=== PATIENT | male | born 1955 | race Caucasian/White ===

== ENCOUNTER 2022-06-10 05:59 | Emergency (ER) | payer MEDICARE, OTHER ==
[2022-06-10 06:35] LABS: BASOPHILS # (AUTO) 0.1 10^3/uL (0.0-0.1); BASOPHILS % (AUTO) 0.8 %; EOSINOPHILS # (AUTO) 0.1 10^3/uL (0.0-0.7); EOSINOPHILS % (AUTO) 1.7 %; HCT - HEMATOCRIT 42.1 % (42.0-52.0); HGB - HEMOGLOBIN 14.2 g/dL (14.0-18.0); LYMPHOCYTES # (AUTO) 1.3 10^3/uL (1.5-3.5); LYMPHOCYTES % (AUTO) 19.1 %; MEAN CORPUSCULAR HEMOGLOBIN 30.3 pg (27.0-31.0); MEAN CORPUSCULAR HGB CONC 33.7 g/dL (32.0-36.0); MEAN CORPUSCULAR VOLUME 89.8 fL (80.0-94.0); MEAN PLATELET VOLUME 9.1 fL (7.4-11.4); MONOCYTES # (AUTO) 0.6 10^3/uL (0.0-1.0); MONOCYTES % (AUTO) 8.7 %; NEUTROPHILS # (AUTO) 4.6 10^3/uL (1.5-6.6); NEUTROPHILS % (AUTO) 69.2 %; PLT - PLATELET COUNT 268 10^3/uL (130-450); RED BLOOD COUNT 4.69 10^6/uL (4.70-6.10); RED CELL DISTRIBUTION WIDTH 11.9 % (12.0-15.0); WHITE BLOOD COUNT 6.7 x10^3/uL (4.8-10.8)
--- NOTE | 2022-06-10 06:38 | ED Physician Documentation ---
History of Present Illness - Stated complaint Stated Complaint: CHEST PX - Chief complaint Chief Complaint: Cardiac - Additonal information Additional information: Patient 67-year-old male presenting to the emergency department with chief com plaint chest pain. Reports substernal chest pain radiating down the left arm that began at 01 100 this morning. Denies previous episodes of chest pain. Reports a history of high blood pressure and does state that he believes he may have slightly elevated cholesterol. Is an ex-smoker who quit in 1974. Reports some recent travel, 3 months ago flew to [place]. Review of Systems Constitutional: denies: Fever Eyes: denies: Loss of vision Ears: denies: Loss of hearing Nose: denies: Rhinorrhea / runny nose Throat: denies: Dental pain / toothache Cardiac: reports: Chest pain / pressure Respiratory: denies: Dyspnea GI: denies: Abdominal Pain, Nausea, Vomiting PD PAST MEDICAL HISTORY - Past Medical History Cardiovascular: Hypertension Endocrine/Autoimmune: HyPOthyroidism - Present Medications Home Medications: Ambulatory Orders Medication Instructions Recorded Confirmed Albuterol [Ventolin Hfa] 06/11/14 06/11/14 Azithromycin [Zithromax] 250 mg PO DAILY #4 tablet 06/11/14 Benzonatate [Tessalon] 06/11/14 06/11/14 Carvedilol [Coreg] 25 mg PO BID 06/11/14 06/11/14 Levothyroxine Sodium [Synthroid] 225 mcg PO DAILY 06/11/14 06/11/14 Telmisartan [Micardis] 80 mg PO DAILY 06/11/14 06/11/14 guaiFENesin/CODEINE [Robitussin AC] 5 - 10 ml PO Q6H PRN #120 ml 06/11/14 predniSONE [Deltasone] 40 mg PO DAILY 3 Days tablet 06/11/14 - Allergies Allergies/Adverse Reactions: Allergies Allergy/AdvReac Type Severity Reaction Status Date / Time No Known Drug Allergies Allergy Verified 06/10/22 06:15 - Social History Does the pt smoke?: No Smoking Status: Never smoker Does the pt drink ETOH?: No Does the pt have substance abuse?: No - Immunizations Immunizations: TDAP >10years/unknown PD ED PE NORMAL - Vitals Vital signs reviewed: Yes (Hypertensive but otherwise within normal limits.) - General General: Alert and oriented X 3, No acute distress, Well developed/nourished - HEENT HEENT: Atraumatic, PERRL, EOMI, Ears normal, Pharynx benign - Neck Neck: Supple, no meningeal sign, No bony TTP, No adenopathy, No JVD - Cardiac Cardiac: RRR, No murmur, No gallop, No rub - Respiratory Respiratory: No respiratory distress - Abdomen Abdomen: Normal bowel sounds - Male Male : Deferred - Rectal Rectal: Deferred - Derm Derm: Normal color - Extremities Extremities: No deformity - Neuro Neuro: Alert and oriented X 3, piano regulator 2-12 intact, No motor deficit, No sensory deficit, Normal speech Results - Vitals Vitals: Vital Signs - 24 hr 06/10/22 06/10/22 06/10/22 06:04 06:50 07:28 Temperature 35.7 C L Heart Rate 63 60 61 Respiratory 20 16 20 Rate Blood Pressure 208/94 H 184/98 H 173/100 H O2 Saturation 99 100 100 Oxygen O2 Source Room air - EKG (time done) 0609 EKG releavant findings:: EKG personally interpreted by author of this note. Relevant findings are: Sinus rhythm with rate 66 bpm. Left axis deviation. MD interval prolonged at 211 ms. Normal QRS and QTc intervals. No ST segment elevations. Nonspecific ST-T wave abnormalities noted most prominently in the inferior leads. No previous available for comparison. - Labs Labs: Laboratory Tests 06/10/22 06/10/22 06/10/22 06:22 06:22 06:22 WBC 6.7 RBC 4.69 L Hgb 14.2 Hct 42.1 MCV 89.8 MCH 30.3 MCHC 33.7 RDW 11.9 L Plt Count 268 MPV 9.1 Neut # (Auto) 4.6 Lymph # (Auto) 1.3 L Garrard # (Auto) 0.6 Eos # (Auto) 0.1 Baso # (Auto) 0.1 Absolute Nucleated RBC 0.00 Nucleated RBC % 0.0 Sodium 137 Potassium 4.4 Chloride 104 Carbon Dioxide 26 Anion Gap 7.0 BUN 25 H Creatinine 1.0 Estimated GFR (MDRD) 75 L Glucose 130 H Calcium 9.2 Total Bilirubin 0.9 AST 30 ALT 27 Alkaline Phosphatase 73 Troponin I High Sens 49.3 H* Total Protein 7.8 Albumin 3.9 Globulin 3.9 Albumin/Globulin Ratio 1.0 Lipase 38 PD Medical Decision Making - ED course Complexity details: reviewed results, d/w patient ED course: Patient 67-year-old male presenting to the emergency departmentWith chest pain. Patient awoke 0100 hours with substernal chest pain radiating to theLeft arm. EKG demonstrates T wave inversions notably in the inferior leads with no previous EKG available for comparison. Ordered initial labs including initial high-sensitivity troponin and D-dimer. Patient otherwise hemodynamically stable. Signed out to the oncoming physician, please see their documentation for further detail. Departure - Departure Disposition: 02 Transfer Acute Care Hosp Clinical Impression: Non-ST elevation NE (NSTEMI) Condition: Serious
[2022-06-10 06:56] LABS: ALBUMIN 3.9 g/dL (3.2-5.5); BILIRUBIN,TOTAL 0.9 mg/dL (0.2-1.0); CALCIUM 9.2 mg/dL (8.5-10.3); TOTAL PROTEIN 7.8 g/dL (6.7-8.2)
[2022-06-10 07:01] LABS: POTASSIUM 4.4 mmol/L (3.5-5.0)
[2022-06-10] MEDS ORDERED: ATORVASTATIN 40 MG TABLET PO STA (07:04)
[2022-06-10] MEDS ORDERED: ASPIRIN CHEW 81 MG TABLET PO STA (07:04)
[2022-06-10] MEDS ORDERED: ENOXAPARIN 120 MG/0.8 ML SYRINGE SUBQ STA (07:04)
[2022-06-10] MEDS ORDERED: METOPROLOL TARTRATE 50 MG TABLET PO STA (07:05)
[2022-06-10] MEDS ORDERED: ACETAMINOPHEN 500 MG TABLET PO PRN (07:05)
[2022-06-10] MEDS ORDERED: ONDANSETRON 4 MG/2 ML VIAL IVP PRN (07:05)
[2022-06-10] MEDS ORDERED: MORPHINE 2 MG/ML CARPUJECT IVP STA (07:13)
--- NOTE | 2022-06-10 07:14 | ED Physician Documentation ---
ED Addendum - Addendum Addendum: 06/10/22 07:[address] Mcdaniels at 7 AM shift change. Briefly this is a [age]-year-old gentleman with history of hypertension who presents with somewhat typical chest pain starting this morning at 1 AM. His EKG demonstrates flipped T waves inferiorly and flat T waves throughout the precordium. He is still having pain. His troponin is positive albeit mildly so at 49. Patient updated. He has seen Dr. Roblero associated with [facility] cardiology in [place] and we are calling them for potential transfer. In the meantime I am ordering aspirin, Lovenox, beta-blockade, statin, and some morphine as he is still having pain. 06/10/22 07:45 Spoke with Jordan Neal, cardiology at 0746, defers to IM for admit. 06/10/22 07:[address] Klein, hospitalist at [facility] Diagnosis non-STEMI Disposition: Transferred to [facility] Condition: Stable
--- NOTE | 2022-06-10 08:15 | XRAY Report ---
PROCEDURE: Chest 1 View X-Ray INDICATIONS: Chest pain TECHNIQUE: One view of the chest was acquired. COMPARISON: None. FINDINGS: Surgical changes and devices: None. Lungs and pleura: No pleural effusions or pneumothorax. Linear right basilar opacities likely atelec tasis versus scarring. Mediastinum: Mediastinal contours appear normal. Heart size is enlarged. Bones and chest wall: No suspicious bony lesions. Overlying soft tissues appear unremarkable. IMPRESSION: No acute pulmonary process. The above findings are concordant with preliminary report. Reviewed by: Chely Prakash MD on 06/10/2022 8:13 AM PDT Approved by: Chely Prakash MD on 06/10/2022 8:13 AM PDT Station ID: [id number]
[2022-06-10] MEDS ORDERED: METOPROLOL TARTRATE 25 MG TABLET PO SCH (09:00)
[2022-06-10] MEDS ORDERED: ASPIRIN CHEW 81 MG TABLET PO SCH (09:00)
[2022-06-10 09:13] VITALS: BP 172/92
[2022-06-10] MEDS ORDERED: ATORVASTATIN 40 MG TABLET PO SCH (21:00)
[2022-06-10] MEDS ORDERED: ENOXAPARIN 100 MG/ML SYRINGE SUBQ SCH (21:00)
[2022-06-11] MEDS ORDERED: PANTOPRAZOLE 40 MG TABLET PO SCH (07:00)
== END 2022-06-10 09:20 | disposition short-term general hospital (02) ==
LOC: ED 05:59
DX: I10 Essential (primary) hypertension (principal); I21.4 Non-ST elevation (NSTEMI) myocardial infarction; Z87.891 Personal history of nicotine dependence
CPT/HCPCS: 36415; 71045; 80053; 83690; 84484; 85025; 85379; 93005; 96372; 96374; 99285; A9270; J1650

== ENCOUNTER 2022-06-10 09:23 | Outpatient (CLI) | payer MEDICARE, OTHER | END 2022-06-10 23:59 | disposition short-term general hospital (02) | LOC: EMS 09:23 | PROVIDERS: ATTEND Emergency Medicine | DX: I21.4 Non-ST elevation (NSTEMI) myocardial infarction (principal) | CPT/HCPCS: A0425; A0426 ==